=== PATIENT | female | born 1970 | race Caucasian/White ===

== ENCOUNTER 2023-11-20 11:35 | Emergency (ER) | payer OTHER, SELFPAY ==
[2023-11-20 11:37] VITALS: BP 128/69; PULSE 67; RESP 13; TEMP 36.7; O2SAT 99; BMI 24.9
[2023-11-20 12:00] VITALS: BP 112/44; PULSE 65; O2SAT 99
--- NOTE | 2023-11-20 12:06 | XR_ITS ---
FINAL REPORT CLINICAL HISTORY: injury, pain FINDINGS: Right shoulder Three views were obtained. There is no acute fracture or dislocation. There is mild AC and glenohumeral joint degenerative change. There is calcification posterior to the humeral head worrisome for calcific tendinitis. IMPRESSION: Degenerative changes without acute bony abnormality. Findings worrisome for calcific tendinitis. Reviewed, Interpreted and Dictated by Anatoly Valle III, MD Transcribed by Lisbet Carter Authenticated and [facility]
--- NOTE | 2023-11-20 12:06 | XR_ITS ---
FINAL REPORT CLINICAL HISTORY: injury, pain FINDINGS: Right humerus Two views were obtained. There is no acute fracture or dislocation. There is mild AC and glenohumeral joint degenerative change. There is calcification posterior to the humeral head worrisome for calcific tendinitis. IMPRESSION: Degenerative changes without acute bony abnormality. Findings worrisome for calcific tendinitis. Reviewed, Interpreted and Dictated by Anatoly Valle III, MD Transcribed by Lisbet Carter Authenticated and [facility]
--- NOTE | 2023-11-20 12:06 | XR_ITS ---
FINAL REPORT CLINICAL HISTORY: injury, pain FINDINGS: Right elbow Three views were obtained. There is no acute fracture or dislocation. The joint spaces appear normal. No soft tissue abnormality is identified. IMPRESSION: No acute process. Reviewed, Interpreted and Dictated by Anatoly Valle III, MD Transcribed by Lisbet Carter Authenticated and [facility] [place]
[2023-11-20] MEDS: MORPHINE 4MG/ML SYRINGE 4 MG IM (12:12)
[2023-11-20 12:30] VITALS: BP 126/68; PULSE 62; RESP 18; O2SAT 98
--- NOTE | 2023-11-20 12:42 | ED_ITS ---
Discharge Plan Disposition Patient Disposition: Home, Self-Care Condition: Good Prescriptions Prescriptions: New naproxen 500 mg tablet 500 mg PO BID Qty: 20 0RF Referrals Follow up/Referrals: Provider,Referral, MD [Primary Care Provider] - See instructions Activity Restrictions/Add. Instructions Additional Instructions/Restrictions: You were evaluated in the emergency department today. Please follow-up closely with orthopedics over the next week. Return to the emergency department for new or worsening symptoms. Clinical Impressions Clinical Impression: Calcific shoulder tendinitis, Acute shoulder pain Instructions Patient Instructions: DI for Acute Pain -- Adult Print Language Print Language: Czech Discharge ED Provider: Argenis Kim General Adult HPI General Chief complaint: PAIN Stated complaint: R Shoulder pain Time Seen by Provider: 11/20/23 11:56 Mode of Arrival: Ambulatory Source of Information: Patient Limitations: No Limitations Description of Symptoms (Recalled from ER Triage Doc. by RN): pt presents to ED with c/o right forearm and shoulder pain. pt was at a dance competition this weekend. pt reports after competition when she was sitting down for awards she noticed the pain begin in her right forearm and radiating into her shoulder. History of Present Illness HPI narrative: This patient is a 53-year-old female who denies significant medical history presenting to the emergency department for evaluation with concern for right shoulder and elbow pain. Patient reports that she was at a ballroom dancing competition this weekend and underwent multiple heats. After she sat down after multiple rounds of dancing, she noted that her right shoulder was becoming increasingly more painful. She cannot think of any specific injuries but believes she strained it while dancing. She denies any other pain or injuries. She denies any numbness, tingling, or other concerns. pain is worse with movement. Related Data Previous Rx's ?Medication ?Instructions ?Recorded naproxen 500 mg tablet 500 mg PO BID #20 tabs 11/20/23 Allergies Allergy/AdvReac Type Severity Reaction Status Date / Time No Known Allergies Allergy Verified 11/20/23 12:07 [facility] Disclaimer: The information contained in this section may have been updated after the patient was seen, as this information can be updated by other users. Social History Smoking Status: Never smoker alcohol intake: never current occupational status: employed Travel in the last 8 weeks: None ROS Obtained: Yes All systems reviewed & no additional complaints except as documented Physical Exam General General appearance: alert and in no apparent distress Head Head exam: atraumatic and normocephalic Eye Eye exam: Present normal appearance, PERRL and EOMI ENT ENT exam: Present normal exam, normal oropharynx, mucous membranes moist and normal external ear exam Neck Neck exam: Present normal inspection, full ROM and trachea midline; Absent tenderness Chest Chest inspection: Present normal inspection and symmetric chest wall rise; Absent tenderness Respiratory Respiratory exam: Present normal lung sounds bilaterally; Absent respiratory distress, wheezes, stridor or accessory muscle use Cardiovascular Cardiovascular exam: Present regular rate and normal rhythm Abdominal Exam Abdominal exam: Present soft; Absent distention, tenderness or guarding Extremities Exam Extremities exam: Present tenderness (Right shoulder), normal capillary refill, joint swelling (Right shoulder) and other (All compartments soft, neurovascularly intact distally); Absent full ROM (Limited range of motion of the right shoulder secondary to pain) or edema Back Exam Back exam: Present normal inspection and full ROM; Absent tenderness Neurological Exam Neurological exam: Present alert, oriented X3, CN II-XII intact and normal gait; Absent motor sensory deficit Psychiatric Psychiatric exam: Present normal affect and normal mood Skin Skin exam: Present warm and dry Medical Decision Making Medical Records Medical records reviewed: Yes I reviewed the patient's medical records. Jono Arrington Pt receiving controlled substance: No Vital Signs: 11/20/23 11:37 11/20/23 12:00 11/20/23 12:30 Temperature 98.1 F Temperature Source Oral Pulse Rate 65 62 Pulse Rate [Left Radial] 67 Respiratory Rate 13 18 Blood Pressure 112/44 L 126/68 Blood Pressure [Right Arm] 128/69 Blood Pressure Mean 66 Blood Pressure Mean [Right Arm] 88 02 Sat by Pulse Oximetry 99 99 98 Oxygen Delivery Method Room Air Room Air Room Air 11/20/23 13:00 11/20/23 13:30 11/20/23 14:54 Temperature 98.1 F Temperature Source Oral Pulse Rate 58 L 50 L 77 Pulse Rate [Left Radial] Respiratory Rate 18 Blood Pressure 119/61 124/58 L 132/62 Blood Pressure [Right Arm] Blood Pressure Mean 77 79 Blood Pressure Mean [Right Arm] 02 Sat by Pulse Oximetry 96 99 Oxygen Delivery Method Room Air Room Air Lab Data Lab results reviewed: Yes I reviewed the patient's lab results. Orders (Tests/Meds): ED MEDICATIONS Discontinued Medications Generic Name Dose Route Start Last Admin Trade Name Elvie PRN Reason Stop Dose Admin Dexamethasone Sodium Phosphate 10 mg 11/20/23 14:30 11/20/23 14:38 Dexamethasone 4mg/Ml 1ml Vial IM 11/20/23 14:31 10 mg ONCE ONE Administration Morphine Sulfate 4 mg 11/20/23 12:06 11/20/23 12:12 Morphine 4mg/Ml Syringe IM 11/20/23 12:07 4 mg ONCE ONE Administration Naproxen 500 mg 11/20/23 14:31 11/20/23 14:38 Naproxen 500mg Tablet PO 11/20/23 14:32 500 mg ONCE ONE Administration ORDERS Category Date Time Status Elbow XR right minimum 3 views [XR elbow RT min 3V] Exams 11/20/23 12:06 Completed Stat Humerus XR right [XR humerus RT] Stat Exams 11/20/23 12:06 Completed Shoulder XR right miminum 2 views [XR shoulder RT min Exams 11/20/23 12:06 Taken 2V] Stat Medical Decision Narrative: In summary, this patient is a 53-year-old female presenting to the Emergency Department for evaluation of right shoulder pain after ballroom dancing c ompetition. Differential diagnoses considered include but are not limited to fracture, contusion, strain/sprain, neurovascular injury, osteoarthritis, rotator cuff injury. Ruling out the most morbid conditions drove assessment. On exam, the patient has right shoulder swelling with tenderness to palpation. She has limited range of motion secondary to pain. She is neurovascularly intact distally. No obvious wounds. Workup included x-rays of the right shoulder, humerus, and elbow. She was given IM morphine for symptomatic improvement of pain for the purposes of x-rays. I independently interpreted x- rays prior to the radiologist read and noted no obvious acute fracture. Please see their read for final interpretation. Per the radiologist, patient has findings concerning for calcific tendinitis. Ultimately, feel she is appropriate for discharge with anti-inflammatories for supportive management. She was given sling for comfort given that she is having significant pain with movement of her arm. She was also given a shot of dexamethasone as well as prescription for oral naproxen. Strict return precautions were given as well as instructions for close follow-up with orthopedics. Patient was discharged after all questions were answered. Critical Care Critical Care Time Critical Care Time: No
--- NOTE | 2023-11-20 12:49 | PC.NURSE ---
PT RETURNED FROM XR
[2023-11-20 13:00] VITALS: BP 119/61; PULSE 58; O2SAT 96
[2023-11-20 13:30] VITALS: BP 124/58; PULSE 50; O2SAT 99
[2023-11-20] MEDS: DEXAMETHASONE 4MG/ML 1ML VIAL 10 MG IM (14:38)
[2023-11-20] MEDS: NAPROXEN 500MG TABLET 500 MG PO (14:38)
[2023-11-20 14:54] VITALS: BP 132/62; PULSE 77; RESP 18; TEMP 36.7; O2SAT 99
== END 2023-11-20 14:55 | disposition home or self-care (01) ==
PROVIDERS: Emergency Provider Emergency Medicine
DX: M75.31 Calcific tendinitis of right shoulder (principal); M25.521 Pain in right elbow
CPT/HCPCS: 73030; 73060; 73080; 96372; 99284; J1100; J2270

== ENCOUNTER 2024-09-19 15:19 | Emergency (ER) | payer OTHER, SELFPAY ==
--- NOTE | 2024-09-19 15:25 | ECG_ITS ---
APPROVED REPORT Exam: Resting ECG HR:67 bpm ECG Measurements Heart Rate 67 AXES OH 158 P 73 QRSd 77 QRS 73 QT 369 T 71 QTc 384 Conclusion SINUS RHYTHM LOW QRS VOLTAGE IN PRECORDIAL LEADS [QRS DEFLECTION < 1.0 mV IN CHEST LEADS] BORDERLINE ECG Electronically signed by : VANESA BARRERA, 09/23/2024 08:46:12
[2024-09-19 15:29] VITALS: BP 161/91; PULSE 69; O2SAT 99
[2024-09-19 15:30] VITALS: BP 153/93; PULSE 68; O2SAT 99
--- NOTE | 2024-09-19 15:31 | XR_ITS ---
PROCEDURE INFORMATION: Exam: XR Chest Exam date and time: 09/19/2024 4:11 PM Age: 54 years old Clinical indication: Other: Chest pain; Additional info: Cp TECHNIQUE: Imaging protocol: Radiologic exam of the chest. Views: 1 view. COMPARISON: CR XR HUMERUS RT 11/20/2023 12:35 PM FINDINGS: Lungs: No consolidation. Pleural spaces: No pleural effusion. No pneumothorax. Heart/Mediastinum: No cardiomegaly. Bones/joints: Unremarkable. IMPRESSION: No acute findings.
--- NOTE | 2024-09-19 15:32 | [facility].EDCP ---
Discharge Plan Disposition Patient Disposition: Home, Self-Care Prescriptions Prescriptions: No Action thyroid (pork) [ELECTROLYSIS OPERATOR Thyroid] 60 mg tablet 60 mg PO DAILY Patient Comments: TAKE 1 TABLET BY MOUTH ONCE DAILY meloxicam 7.5 mg tablet 7.5 mg PO DAILY Qty: 30 0RF naproxen 500 mg tablet 500 mg PO BID Qty: 20 0RF Referrals Follow up/Referrals: Ruth Bolanos MD [Primary Care Provider, Medical] - See instructions Activity Restrictions/Add. Instructions Additional Instructions/Restrictions: Today you were evaluated in the emergency department and diagnosed with dehydration. Please increase your fluid intake. Your lab work was overall unremarkable. Your chest x-ray does not show any acute findings on my interpretation. As we discussed, please make a follow-up appointment with your PCP. Please return to the ED for any worsening of your condition. Clinical Impressions Clinical Impression: Dehydration, Creatinine elevation Instructions Patient Instructions: DI for Dehydration -- Adult Print Language Print Language: [place] Discharge ED Provider: Drew Newsome HPI <Betzy Berg APRN - Last Filed: 09/19/24 17:26> General Chief Complaint: Chest Pain Stated Complaint: Chest pressure,dizziness,lightheaded,SOA Time Seen by Provider: 09/19/24 15:24 History of Present Illness HPI narrative: patient is a 54-year-old female PMHx Brina's who presents to the ED with complaints of generalized chest discomfort that started yesterday. She is not currently having chest pain at this time. Patient states over the past several days she has felt generally fatigued, has been able to workout and dance, most recently had a dance competition, however feels drained as of the past few days. Patient states that her chest discomfort does not radiate into her arms, neck or shoulders. Related Data Home Medications ?Medication ?Instructions ?Recorded ?Confirmed thyroid (pork) 60 mg tablet (ELECTROLYSIS OPERATOR 60 mg PO DAILY 11/27/23 11/27/23 Thyroid) Previous Rx's ?Medication ?Instructions ?Recorded naproxen 500 mg tablet 500 mg PO BID #20 tabs 11/20/23 meloxicam 7.5 mg tablet 7.5 mg PO DAILY #30 tabs 11/27/23 Allergies Allergy/AdvReac Type Severity Reaction Status Date / Time No Known Allergies Allergy Verified 11/27/23 10:16 PFSH <Betzy Berg APRN - Last Filed: 09/19/24 17:26> [facility] Disclaimer: The information contained in this section may have been updated after the patient was seen, as this information can be updated by other users. Medical History (Updated 09/19/24 @ 17:01 by Betzy Berg APRN) Right shoulder pain Hypothyroid Factor 5 Leiden mutation, heterozygous Surgical History History of Family History Mother Thyroid disorder Other Adopted Social History Smoking Status: Never smoker alcohol intake: never current occupational status: employed Travel in the last 8 weeks?: None Have you lived/traveled outside [place] in past 30 days?: No Contact w/someone who lives/traveled outside US past 30 days?: No Exposure to someone with infectious disease in past 14 days?: No Do you have a fever (greater than 100.4 F or 38 C)?: No Have you tested positive for COVID-19?: No Exposed to someone with COVID-19 in past 14 days?: No Do you have a sore throat?: No Do you have a cough?: No Do you have any weakness?: No Do you have any diarrhea?: No Are you experiencing any unusual bleeding?: No Do you have any muscle aches/pain?: No Do you have any abdominal pain?: No Are you experiencing loss of taste or smell?: No Other Medical History Have you received the Pneumonia Vaccine: No <Betzy Berg APRN - Last Filed: 09/19/24 17:26> ROS Obtained: Yes Systems reviewed as appropriate & no additional complaints except as documented Physical Exam <Betzy Berg APRN - Last Filed: 09/19/24 17:26> General General appearance: alert and in no apparent distress Head Head exam: atraumatic and normocephalic Eye Eye exam: Present normal appearance and PERRL ENT ENT exam: Present normal exam Neck Neck exam: Present normal inspection Chest Chest inspection: Present normal inspection and symmetric chest wall rise; Absent tenderness Respiratory Respiratory exam: Present normal lung sounds bilaterally Cardiovascular Cardiovascular exam: Present regular rate Abdominal Exam Abdominal exam: Present soft and normal bowel sounds; Absent tenderness Extremities Exam Extremities exam: Present normal inspection and full ROM Back Exam Back exam: Present normal inspection and full ROM Neurological Exam Neurological exam: Present alert and oriented X3 Psychiatric Psychiatric exam: Present normal affect and normal mood Skin Skin exam: Present warm and dry HEART Score <Betzy Berg APRN - Last Filed: 09/19/24 17:26> HEART Score HEART Score assessment performed?: Yes History (anamnesis): Slightly suspicious ECG: Normal Age: 45-65 years Risk factors: No known risk factors Troponin: </= normal limit HEART Score: 1 <Drew Newsome MD - Last Filed: 09/20/24 02:23> HEART Score HEART Score: 1 Critical Care <Betzy Berg APRN - Last Filed: 09/19/24 17:26> Critical Care Time Critical Care Time: No Medical Decision Making <Betzy Berg APRN - Last Filed: 09/19/24 17:26> Jono Inquiry Pt receiving controlled substance: No Vital Signs Vital Signs: 09/19/24 15:29 09/19/24 15:30 09/19/24 15:39 Temperature 98.0 F Temperature Source Oral Pulse Rate 69 68 Pulse Rate [Left Radial] 68 Respiratory Rate 15 Blood Pressure 161/91 H 153/93 H Blood Pressure [Right Arm] 153/93 H Blood Pressure Mean [Right Arm] 113 Blood Pressure Source 02 Sat by Pulse Oximetry 99 99 98 Oxygen Delivery Method 09/19/24 15:46 09/19/24 17:00 09/19/24 17:19 Temperature 98.0 F Temperature Source Oral Pulse Rate 66 65 Pulse Rate [Left Radial] Respiratory Rate 16 15 18 Blood Pressure 129/75 145/85 H Blood Pressure [Right Arm] Blood Pressure Mean [Right Arm] Blood Pressure Source Automatic Cuff 02 Sat by Pulse Oximetry 97 Oxygen Delivery Method Room Air Room Air Lab Data Labs: Lab Results 09/19/24 15:35: WBC 8.0, RBC 4.72, Hgb 13.8, Hct 39.8, MCV 84.3, MCH 29.2, MCHC 34.7, RDW 12.2, Plt Count 258, MPV 10.5 H, Neut % (Auto) 57.7, Lymph % (Auto) 30.0, Cottle % (Auto) 8.3, Eos % (Auto) 3.3, Baso % (Auto) 0.4, Neut # (Auto) 4.6, Lymph # (Auto) 2.4, Cottle # (Auto) 0.7, Eos # (Auto) 0.3, Baso # (Auto) 0.0, Sodium 139, Potassium 4.4, Chloride 100, Carbon Dioxide 29, Anion Gap 14.4, BUN 17, Creatinine 1.10 H, Estimated Creat Clear 62, Estimated GFR 52 L, Est GFR ( Amer) 62, Glucose 112 H, Calcium 9.8, Magnesium 2.1, Total Bilirubin 0.3, AST 41 H, ALT 32, Alkaline Phosphatase 99, Troponin I < 0.01, Total Protein 8.1, Albumin 4.7, Globulin 3.4 H, Albumin/Globulin Ratio 1.4, Urine Color Yellow, Urine Appearance Clear, Urine pH 7.5, Ur Specific [place] 1.015, Urine Protein Negative, Urine Glucose (UA) Negative, Urine Ketones Negative, Urine Blood Negative, Urine Nitrate Negative, Urine Bilirubin Negative, Urine Urobilinogen 0.2, Ur Leukocyte Esterase Negative, Ur Squamous Epith Cells Occasional, Other Crystals 3+, Urine Bacteria 1+, Urine HCG, Qual Negative, HCV Ab SANTHOSH w/Rflx PCR Qn Negative, HIV Ag/Ab Combo Qual Negative 09/19/24 15:35 09/19/24 15:35 Response Orders (Tests/Meds): ED MEDICATIONS Discontinued Medications Generic Name Dose Route Start Last Admin Trade Name Freq PRN Reason Stop Dose Admin Sodium Chloride 500 mls @ 999 mls/hr 09/19/24 15:31 09/19/24 16:04 Sod Chlor 0.9% 1000ml Bag IV 09/19/24 16:01 Not Given .Q31M ONE Sodium Chloride 500 mls @ 999 mls/hr 09/19/24 16:05 09/19/24 16:09 Sod Chlor 0.9% 1000ml Bag IV 09/19/24 16:35 999 mls/hr .Q31M ONE Administration ORDERS Category Date Time Status CXR --portable [XR chest portable] Stat Exams 09/19/24 15:31 Completed CBC w/Auto Diff [Complete Blood Count Auto Diff] Stat Lab 09/19/24 15:35 Completed CMP [Comprehensive Metabolic Panel] Stat Lab 09/19/24 15:35 Completed HIV Combo Stat Lab 09/19/24 15:35 Completed Hepatitis C Ab Qual. W/ RFX Stat Lab 09/19/24 15:35 Completed Magnesium Stat Lab 09/19/24 15:35 Completed Trop I [Troponin I] Stat Lab 09/19/24 15:35 Completed Urinalysis and Microscopic Stat Lab 09/19/24 15:35 Completed Urine , HCG Qual. Stat Lab 09/19/24 15:35 Completed MDM Narrative Medical Decision Narrative: In summary, patient is a 54-year-old female PMHx Brina's who presents to the ED with complaints of generalized chest discomfort that started yesterday. She is not currently having chest pain at this time. Patient states over the past several days she has felt generally fatigued, has been able to workout and dance, most recently had a dance competition, however feels drained as of the past few days. Patient states that her chest discomfort does not radiate into her arms, neck or shoulders. Is not associated with any shortness of breath. She denies any syncopal episode. Denies any recent trauma or falls. Denies any previous cardiac history. Denies fever, chills, headache, visual changes, shortness of breath, abdominal pain, nausea, vomiting, dysuria. Upon initial evaluation patient is alert, oriented and cooperative. She is hemodynamically stable. Her physical exam is unremarkable, chest wall nontender. Neuroexam normal. Negative Wells criteria. Differential diagnosis include ACS, pneumonia, electrolyte imbalance, dehydration, among others. Will proceed with hematologic labs and chest x-ray. Patient is agreeable plan at this time. She was given IV fluids for rehydration. CBC unremarkable for any leukocytosis, stable H&H. CMP remarkable for creatinine of 1.10, GFR 52, AST 41, globulin 3.4, this is most likely from a dehydration. Magnesium 2.1. Urinalysis does not show any indication of infection. Troponin < 0.01. Upon reassessment, patient does not have chest pain. She has remained hemodynamically stable, she has not been tachycardic and her oxygen has maintained above 97%. Given this, feel the patient is safe to be discharged home at this time. I discussed with her that she will need to call her PCP and make a follow-up appointment for next week. We discussed return precautions to the ED. I advised her to increase her fluid intake and attempt to stay out of the heat. Patient verbalized understanding, she is agreeable to discharge at this time. <Drew Newsome MD - Last Filed: 09/20/24 02:23> Vital Signs Vital Signs: 09/19/24 15:29 09/19/24 15:30 09/19/24 15:39 Temperature 98.0 F Temperature Source Oral Pulse Rate 69 68 Pulse Rate [Left Radial] 68 Respiratory Rate 15 Blood Pressure 161/91 H 153/93 H Blood Pressure [Right Arm] 153/93 H Blood Pressure Mean [Right Arm] 113 Blood Pressure Source 02 Sat by Pulse Oximetry 99 99 98 Oxygen Delivery Method 09/19/24 15:46 09/19/24 17:00 09/19/24 17:19 Temperature 98.0 F Temperature Source Oral Pulse Rate 66 65 Pulse Rate [Left Radial] Respiratory Rate 16 15 18 Blood Pressure 129/75 145/85 H Blood Pressure [Right Arm] Blood Pressure Mean [Right Arm] Blood Pressure Source Automatic Cuff 02 Sat by Pulse Oximetry 97 Oxygen Delivery Method Room Air Room Air Lab Data Labs: Lab Results 09/19/24 15:35: WBC 8.0, RBC 4.72, Hgb 13.8, Hct 39.8, MCV 84.3, MCH 29.2, MCHC 34.7, RDW 12.2, Plt Count 258, MPV 10.5 H, Neut % (Auto) 57.7, Lymph % (Auto) 30.0, Cottle % (Auto) 8.3, Eos % (Auto) 3.3, Baso % (Auto) 0.4, Neut # (Auto) 4.6, Lymph # (Auto) 2.4, Cottle # (Auto) 0.7, Eos # (Auto) 0.3, Baso # (Auto) 0.0, Sodium 139, Potassium 4.4, Chloride 100, Carbon Dioxide 29, Anion Gap 14.4, BUN 17, Creatinine 1.10 H, Estimated Creat Clear 62, Estimated GFR 52 L, Est GFR ( Amer) 62, Glucose 112 H, Calcium 9.8, Magnesium 2.1, Total Bilirubin 0.3, AST 41 H, ALT 32, Alkaline Phosphatase 99, Troponin I < 0.01, Total Protein 8.1, Albumin 4.7, Globulin 3.4 H, Albumin/Globulin Ratio 1.4, Urine Color Yellow, Urine Appearance Clear, Urine pH 7.5, Ur Specific [place] 1.015, Urine Protein Negative, Urine Glucose (UA) Negative, Urine Ketones Negative, Urine Blood Negative, Urine Nitrate Negative, Urine Bilirubin Negative, Urine Urobilinogen 0.2, Ur Leukocyte Esterase Negative, Ur Squamous Epith Cells Occasional, Other Crystals 3+, Urine Bacteria 1+, Urine HCG, Qual Negative, HCV Ab SANTHOSH w/Rflx PCR Qn Negative, HIV Ag/Ab Combo Qual Negative Response Orders (Tests/Meds): ED MEDICATIONS Discontinued Medications Generic Name Dose Route Start Last Admin Trade Name Freq PRN Reason Stop Dose Admin Sodium Chloride 500 mls @ 999 mls/hr 09/19/24 15:31 09/19/24 16:04 Sod Chlor 0.9% 1000ml Bag IV 09/19/24 16:01 Not Given .Q31M ONE Sodium Chloride 500 mls @ 999 mls/hr 09/19/24 16:05 09/19/24 16:09 Sod Chlor 0.9% 1000ml Bag IV 09/19/24 16:35 999 mls/hr .Q31M ONE Administration ORDERS Category Date Time Status CXR --portable [XR chest portable] Stat Exams 09/19/24 15:31 Completed CBC w/Auto Diff [Complete Blood Count Auto Diff] Stat Lab 09/19/24 15:35 Completed CMP [Comprehensive Metabolic Panel] Stat Lab 09/19/24 15:35 Completed HIV Combo Stat Lab 09/19/24 15:35 Completed Hepatitis C Ab Qual. W/ RFX Stat Lab 09/19/24 15:35 Completed Magnesium Stat Lab 09/19/24 15:35 Completed Trop I [Troponin I] Stat Lab 09/19/24 15:35 Completed Urinalysis and Microscopic Stat Lab 09/19/24 15:35 Completed Urine , HCG Qual. Stat Lab 09/19/24 15:35 Completed ECG Data Tracing #1: Attestation: I reviewed this ECG and interpreted as documented below: ECG Narrative: Normal sinus rhythm. No ST elevations or depressions. QTc normal at 384 MDM Narrative Medical Decision Narrative: In summary, patient is a 54-year-old female PMHx Brina's who presents to the ED with complaints of generalized chest discomfort that started yesterday. She is not currently having chest pain at this time. Patient states over the past several days she has felt generally fatigued, has been able to workout and dance, most recently had a dance competition, however feels drained as of the past few days. Patient states that her chest discomfort does not radiate into her arms, neck or shoulders. Is not associated with any shortness of breath. She denies any syncopal episode. Denies any recent trauma or falls. Denies any previous cardiac history. Denies fever, chills, headache, visual changes, shortness of breath, abdominal pain, nausea, vomiting, dysuria. Upon initial evaluation patient is alert, oriented and cooperative. She is hemodynamically stable. Her physical exam is unremarkable, chest wall nontender. Neuroexam normal. Negative Wells criteria. Differential diagnosis include ACS, pneumonia, electrolyte imbalance, dehydration, among others. Will proceed with hematologic labs and chest x-ray. Patient is agreeable plan at this time. She was given IV fluids for rehydration. CBC unremarkable for any leukocytosis, stable H&H. CMP remarkable for creatinine of 1.10, GFR 52, AST 41, globulin 3.4, this is most likely from a dehydration. Magnesium 2.1. Urinalysis does not show any indication of infection. Troponin < 0.01. Upon reassessment, patient does not have chest pain. She has remained hemodynamically stable, she has not been tachycardic and her oxygen has maintained above 97%. Given this, feel the patient is safe to be discharged home at this time. I discussed with her that she will need to call her PCP and make a follow-up appointment for next week. We discussed return precautions to the ED. I advised her to increase her fluid intake and attempt to stay out of the heat. Patient verbalized understanding, she is agreeable to discharge at this time. I was consulted by the ABBIE, and we discussed the complexity of the problems being addressed. I approve the treatment and management plan for this patient's care in the emergency department, thus performing a substantive portion of the medical decision making. Drew Newsome MD
[2024-09-19 15:39] VITALS: BP 153/93; PULSE 68; RESP 15; TEMP 36.7; O2SAT 98; BMI 25.7
[2024-09-19 15:42] LABS: Hematocrit 39.8 % (37.0-47.0); Hemoglobin 13.8 g/dL (12.2-16.2); Immature Granulocytes % 0.3 %; Mean Corpuscular HGB Conc 34.7 g/dL (31.8-35.4); Mean Corpuscular Hemoglobin 29.2 pg (27.0-31.2); Mean Corpuscular Volume 84.3 fl (81-99); Nucleated Red Blood Cells % 0 %; Platelet Count 258 K/mm3 (142-424); Red Blood Count 4.72 M/mm3 (4.20-5.40); Red Cell Distribution Width-SD 36.9 fL; White Blood Count 8.0 K/mm3 (4.8-10.8)
[2024-09-19 15:46] VITALS: RESP 16
[2024-09-19 15:56] LABS: Albumin Level 4.7 g/dl (3.5-5.0); Chloride 100 mmol/L (98-107); Potassium 4.4 mmoL/L (3.5-5.1); Sodium 139 mmol/L (136-145)
[2024-09-19 15:59] LABS: Alanine Aminotransferase 32 U/L (12-78); Albumin/Globulin Ratio 1.4 (1.1-1.8); Alkaline Phosphatase 99 U/L (38-126); Anion Gap 14.4 mEq/L (5-15); Aspartate Amino Transferase 41 U/L (14-36); Bilirubin,Total 0.3 mg/dl (0.2-1.3); Blood Urea Nitrogen 17 mg/dl (7-17); Calcium 9.8 mg/dl (8.4-10.2); Carbon Dioxide 29 mmol/L (22.0-30.0); Creatinine Clearance Estimated 62 mL/min (50-200); Creatinine,Serum 1.10 mg/dl (0.52-1.04); Estimated Glomerular Filt Rate 52 ml/min (>60); GFR (African American) 62 ML/MIN (>60); Globulin 3.4 g/dL (1.3-3.2); Glucose 112 mg/dl (74-100); Magnesium 2.1 mg/dl (1.6-2.3); Total Protein,Serum 8.1 g/dl (6.3-8.2)
[2024-09-19 16:01] LABS: Microscopic, Urine URINE MICROSCOPIC (MICROSCOPIC)
[2024-09-19 16:04] LABS: Bilirubin,Urine Negative (Negative); Color,Urine YELLOW (Yellow); Glucose,Urine (UA) Negative (Negative); Ketones,Urine Negative (Negative); Leukocyte Esterase,Urine Negative (Negative); PH,Urine 7.5 (5.0-8.5); Protein,Urine Negative (Negative); Specific Gravity, Urine 1.015 (1.005-1.030); Urine Pregnancy, HCG Qual. Negative (Negative); Urobilinogen,Urine 0.2 EU/dl (0.2)
[2024-09-19] MEDS: 0.9 % SODIUM CHLORIDE 1000ML 500 ML 999 ML IV (16:09)
--- NOTE | 2024-09-19 16:14 | PC.NURSE ---
RAD @ BS at this time
[2024-09-19 16:16] LABS: Troponin I < 0.01 ng/ml (0.00-0.034)
[2024-09-19 16:20] LABS: Bacteria,Urine 1+ /lpf; Squamous Epithelial Cell,Urine Occasional #/hpf (0-5)
[2024-09-19 16:52] LABS: Hepatitis C Ab Qual. W/ RFX NEGATIVE (Negative)
[2024-09-19 17:00] VITALS: BP 129/75; PULSE 66; RESP 15; O2SAT 97
[2024-09-19 17:19] VITALS: BP 145/85; PULSE 65; RESP 18; TEMP 36.7; O2SAT 98
== END 2024-09-19 17:20 | disposition home or self-care (01) ==
PROVIDERS: Nurse Practitioner; Emergency Provider Student in an Organized Health Care Education/Training Program; PCP Family Medicine
DX: E86.0 Dehydration (principal); R79.89 Other specified abnormal findings of blood chemistry
CPT/HCPCS: 71045; 80053; 81001; 81025; 83735; 84484; 85025; 86803; 87389; 93005; 96360; 99284; J7030